=== PATIENT | female | born 1990 | race Caucasian/White ===

== ENCOUNTER → 2017-12-04 15:29 | Outpatient (CLI) | payer BC, SELFPAY ==
[2017-12-04 17:52] LABS: Chlamydia Trachomatis by PCR Negative (Negative); Neisserai gonorrhoeae by PCR Negative (Negative); Probe Check PASS; Sample Adequacy Control PASS; Specimen Processing Control PASS
== END ==
PROVIDERS: Visit Provider Obstetrics & Gynecology
DX: Z11.3 Encounter for screening for infections with a predominantly sexual mode of transmission (principal); Z32.01 Encounter for pregnancy test, result positive
CPT/HCPCS: 87491; 87591

== ENCOUNTER → 2017-12-21 15:25 | Outpatient (CLI) | payer BC, SELFPAY ==
[2017-12-21 16:50] LABS: Color, Urine Yellow (Yellow); Glucose, Dipstick 100 mg/dl (Normal); Ketone-Dipstick 5 mg/dl (Negative); Leukocyte Esterase-Dipstick 25 /ul (Negative); Nitrite-Dipstick Negative (Negative); Occult Blood-Urine Negative /ul (Negative); Protein-Dipstick 15 mg/dl (Negative); Specific Gravity, Urine 1.025 (1.002-1.030); Urine Bilirubin Dipstick Negative (Negative); Urine Urobilinogen Normal (Normal)
[2017-12-21 16:56] LABS: Urine Clarity Sl Cldy (Clear)
[2017-12-21 17:01] LABS: Absolute Lymphocyte Count 1.97 X10^3/ul (0.83-4.51); Absolute Neutrophil Count 6.6 X10^3/uL (2.0-7.7); Basophil# 0.01 X10^3/uL; Basophil% 0.1 % (0-1); Eosinophil# 0.07 X10^3/uL; Eosinophils% 0.8 % (0-5); Hematocrit 38.6 % (37-47); Hemoglobin 12.7 g/dl (12.0-15.0); Lymphocyte # 1.97 X10^3/ul (4.0); Lymphocyte % 21.6 % (19-41); Mean Corp Hgb Conc 32.9 g/gl (32-36); Mean Corpuscular Hgb 30.5 pg (27.0-32.0); Mean Corpuscular Volume 92.6 fL (81-99); Mean Platelet Vol. 10.2 fl (6.2-12.0); Monocyte# 0.43 X10^3/uL; Monocyte% 4.7 % (0-10); Neutrophil # 6.61 X10^3/uL (2.7-7.7); Neutrophil % 72.6 % (47-70); Platelet Count 220 K/mm3 (150-450); RBC Distribution Width CV 13.6 % (11.6-14.6); RBC Distribution Width SD 45.9 fl (35.1-43.9); Red Blood Count 4.17 M/mm3 (4.2-5.4); White Blood Count 9.1 K/mm3 (4.4-11.0)
[2017-12-21 17:02] LABS: POSITIVE COUNT NO; POSITIVE DIFFERENTIAL NO; POSITIVE MORPHOLOGY NO
[2017-12-21 17:31] LABS: Thyroid Stim Hormone (TSH) 0.83 uIU/mL (0.358-3.74)
[2017-12-21 17:51] LABS: Amphetamine Urine VISTA NEGATIVE (<1000 ng/mL); Barbiturate Urine VISTA NEGATIVE (< 200 ng/mL); Benzodiazepine Urine VISTA NEGATIVE (< 200 ng/mL); Cocaine Urine VISTA NEGATIVE (< 300 ng/mL); Ecstacy Urine VISTA NEGATIVE (< 500 ng/mL); Methadone Urine VISTA NEGATIVE (< 300 ng/mL); PCP Urine VISTA NEGATIVE (< 25 ng/mL); THC Urine VISTA NEGATIVE (< 50 ng/mL); Vista UDS pH Range 7
[2017-12-21 18:02] LABS: HIV - WCH Non-Reactive (Nonreactive); Rubella IgG 192.2 IU/mL
[2017-12-24 13:29] LABS: Toxoplasma Gondii IgM < 3.0 AU/mL (0.0-7.9)
[2017-12-25 09:39] LABS: HEPATITIS B SURFACE AG Negative (Negative); Hep C Antibodies <0.1 s/co ratio (0.0-0.9); Toxoplasma Gondii IgG < 3.0 IU/mL (0.0-7.1)
[2017-12-28 01:35] LABS: Prenatal RPR NONREACTIVE (NONREACTIVE)
== END ==
PROVIDERS: Visit Provider Obstetrics & Gynecology
DX: Z34.81 Encounter for supervision of other normal pregnancy, first trimester (principal)
CPT/HCPCS: 36415; 80307; 81002; 82306; 84443; 85025; 86703; 86762; 86777; 86778; 86803; 87340

== ENCOUNTER → 2018-04-12 08:35 | Outpatient (CLI) | payer OTHER, SELFPAY ==
[2018-04-12 11:20] LABS: Hematocrit 34.5 % (37-47); Hemoglobin 10.9 g/dl (12.0-15.0); Mean Corp Hgb Conc 31.6 g/gl (32-36); Mean Corpuscular Hgb 30.7 pg (27.0-32.0); Mean Corpuscular Volume 97.2 fL (81-99); Mean Platelet Vol. 10.9 fl (6.2-12.0); Platelet Count 191 K/mm3 (150-450); RBC Distribution Width CV 12.4 % (11.6-14.6); RBC Distribution Width SD 41.9 fl (35.1-43.9); Red Blood Count 3.55 M/mm3 (4.2-5.4); White Blood Count 7.1 K/mm3 (4.4-11.0)
[2018-04-12 11:21] LABS: Scan Indicated on CBC? Y/N NO
[2018-04-12 11:31] LABS: AST(SGOT) 15 U/L (15-37); Alanine Aminotransfer ALT/SGPT 15 U/L (13-56); Albumin, Serum 2.7 g/dL (3.2-5.0); Alkaline Phosphatase 67 U/L (45-117); Bilirubin, Direct 0.09 mg/dL (0.00-0.30); Globulin 3.6 g/dL (2.2-4.2); Glucose Challenge Gest 1H 50g 125 mg/dL (70-140); Protein, Total 6.3 g/dL (6.4-8.2)
== END ==
PROVIDERS: Visit Provider Obstetrics & Gynecology
DX: Z34.83 Encounter for supervision of other normal pregnancy, third trimester (principal)
CPT/HCPCS: 36415; 80076; 82950; 85027

== ENCOUNTER 2018-05-13 12:00 | Outpatient (CLI) | payer OTHER, SELFPAY ==
[2016-05-28 05:10] VITALS: BMI 29.6
[2018-05-13 13:14] VITALS: BMI 26.3
[2018-05-13] MEDS: Ondansetron 4 MG/2 ML Vial IV (13:17)
[2018-05-13] MEDS: 0.9% Normal Saline 1,000 ML 1000 ML IV (13:18)
[2018-05-13 13:24] LABS: Absolute Neutrophil Count 7.1 X10^3/uL (2.0-7.7); Basophil# 0.01 X10^3/uL; Basophil% 0.1 % (0-1); Eosinophil# 0.01 X10^3/uL; Eosinophils% 0.1 % (0-5); Hematocrit 36.5 % (37-47); Hemoglobin 11.6 g/dl (12.0-15.0); Lymphocyte % 8.1 % (19-41); Mean Corp Hgb Conc 31.8 g/gl (32-36); Mean Corpuscular Hgb 29.4 pg (27.0-32.0); Mean Corpuscular Volume 92.6 fL (81-99); Mean Platelet Vol. 10.9 fl (6.2-12.0); Monocyte# 0.78 X10^3/uL; Neutrophil # 7.07 X10^3/uL (2.7-7.7); Neutrophil % 82.1 % (47-70); Platelet Count 161 K/mm3 (150-450); RBC Distribution Width CV 13.3 % (11.6-14.6); RBC Distribution Width SD 44.8 fl (35.1-43.9); Red Blood Count 3.94 M/mm3 (4.2-5.4); White Blood Count 8.6 K/mm3 (4.4-11.0)
[2018-05-13 13:25] LABS: POSITIVE COUNT NO; POSITIVE DIFFERENTIAL NO; POSITIVE MORPHOLOGY NO
[2018-05-13 13:41] LABS: Anion Gap 15 (5-15); BUN 9 mg/dL (7-18); BUN/Creat Ratio 12.6 RATIO (10-20); Calcium,Total 8.3 mg/dL (8.5-10.1); Chloride 109 mmol/L (98-107); Creatinine, Serum 0.72 mg/dL (0.55-1.02); EST Glomerular Filtration Rate 102 mL/min (>60); Est Glom Filt Rate - Afr Amer 123 mL/min (>60); Glucose 81 mg/dL (74-106); Potassium 3.7 mmol/L (3.5-5.1); Sodium Level 140 mmol/L (136-145)
[2018-05-13] MEDS: Dextrose 5%/0.9% NaCl 1,000 ML 250 ML IV (14:28)
[2018-05-13 16:42] LABS: Mucous, Urine 0 SEEN /hpf (<or=2+); Red Blood Cells-Urine 0 SEEN /hpf (0-5); Squamous Epithelial Cells - UA 0 SEEN /hpf (5-10); White Blood Cells 0 SEEN /hpf (0-5)
[2018-05-13 16:49] LABS: Color, Urine Yellow (Yellow); Glucose, Dipstick 100 mg/dl (Normal); Leukocyte Esterase-Dipstick Negative /ul (Negative); Nitrite-Dipstick Negative (Negative); Occult Blood-Urine Negative /ul (Negative); Protein-Dipstick 30 mg/dl (Negative); Specific Gravity, Urine 1.025 (1.002-1.030); Urine Bilirubin Dipstick Negative (Negative); Urine Clarity Clear (Clear); Urine Urobilinogen Normal (Normal)
[2018-05-13 17:00] LABS: Ketone-Dipstick 150 mg/dl (Negative)
[2018-05-13 17:10] LABS: Bacteria RARE /hpf (None Seen)
--- NOTE | 2018-05-13 17:47 | PCM.PN.BLA ---
Progress Note 32 wk EGA with prior 40 wk delivery. Here for IV fluids d/t N/V starting Sunday05/11/18. IV fluids given. Tolerating ice chips now and jello. States has been doing fine at home x two weeks on Zantac bid. Also had been using Zofran. Wants to try another jello prior to going home. Feeling better though. Asking if she needs cervix check AVSS EFM category I tracing with very rare UC noted Cx: deferred A/P: 32 wk N/V. Improved after IV fluids, antiemetics. Tolerating PO jello, ice chips. Will dischg home today .
--- NOTE | 2018-05-14 17:38 | OB.TRI.NOTE ---
History of Present Illness Date of Service: 05/13/18 Was patient seen by the physician?: Yes Reason For Visit: NAUSEA & VOMITING Date of Service: 05/13/18 Final JESUS: 07/08/18 Final JESUS Source: US <20 weeks Gestational age: 32 Weeks and 0 Days History of Present Illness: 32 wk EGA with prior 40 wk delivery. Here for IV fluids d/t N/V starting Sunday05/11/18. States has been doing fine at home x two weeks on Zantac bid. Also had been using Zofran. but stopped that. Still has RX (Dr Janet Arciniega sent more in per pt) Allergies No Known Allergies Allergy (Verified 11/10/15 17:52) Laboratory Studies: Laboratory Tests 05/13/18 05/13/18 05/13/18 Range/Units 16:30 12:55 12:55 WBC 8.6 (4.4-11.0) K/mm3 RBC 3.94 L (4.2-5.4) M/mm3 Hgb 11.6 L (12.0-15.0) g/dl Hct 36.5 L (37-47) % MCV 92.6 (81-99) fL MCH 29.4 (27.0-32.0) pg MCHC 31.8 L (32-36) g/gl RDW 13.3 (11.6-14.6) % RDW Differential 44.8 H (35.1-43.9) fl Plt Count 161 (150-450) K/mm3 MPV 10.9 (6.2-12.0) fl Immature Gran % (Auto) 0.600 (0.0-0.9) % Neut % (Auto) 82.1 H (47-70) % Lymph % (Auto) 8.1 L (19-41) % [place] % (Auto) 9.0 (0-10) % Eos % (Auto) 0.1 (0-5) % Baso % (Auto) 0.1 (0-1) % Absolute Neuts (auto) 7.1 (2.0-7.7) X10^3/uL Absolute Lymphs (auto) 0.70 L (0.83-4.51) X10^3/ul Total Counted Not Reportable Sodium 140 (136-145) mmol/L Potassium 3.7 (3.5-5.1) mmol/L Chloride 109 H (98-107) mmol/L Carbon Dioxide 16.0 L (21.0-32.0) mmol/L Anion Gap 15 (5-15) BUN 9 (7-18) mg/dL Creatinine 0.72 (0.55-1.02) mg/dL Est GFR (MDRD) Af Amer 123 (>60) mL/min Est GFR (MDRD) Non-Af 102 (>60) mL/min BUN/Creatinine Ratio 12.6 (10-20) RATIO Glucose 81 (74-106) mg/dL Calcium 8.3 L (8.5-10.1) mg/dL Urine Color Yellow (Yellow) Urine Clarity Clear (Clear) Urine pH 5.0 (5.0 - 8.0) Ur Specific [place] 1.025 (1.002-1.030) Urine Protein 30 H (Negative) mg/dl Urine Glucose (UA) 100 H (Normal) mg/dl Urine Ketones 150 H (Negative) mg/dl Urine Occult Blood Negative (Negative) /ul Urine Nitrite Negative (Negative) Urine Bilirubin Negative (Negative) mg/dL Urine Urobilinogen Normal (Normal) mg/dl Ur Leukocyte Esterase Negative (Negative) /ul Urine RBC 0 SEEN (0-5) /hpf Urine WBC 0 SEEN (0-5) /hpf Ur Squamous Epith Cells 0 SEEN (5-10) /hpf Urine Bacteria RARE (None Seen) /hpf Urine Mucus 0 SEEN (<or=2+) /hpf Review of Systems Constitutional: Reports: Malaise. Denies: Chills, Fever Genitourinary: Denies: Dysuria Physical Exam General: Alert, Oriented x3, Cooperative, No apparent distress HEENT: Atraumatic Abdomen: Soft, Gravid Neurological: Cranial nerves II-XII grossly intact NST - FHR Rate Baby A Variability:: Moderate Accelerations:: 15 x 15 Decelerations:: None NST Reactive:: Yes, Appropriate for gestational age FHR Category:: Category I Uterine Activity:: no UCs noted. Impression/Plan 32 wk EGA N/V dehydration. -- IV fluids given. -- Tolerating ice chips now and jello. -- Feeling better -- dischg home. Keep next PNV in ofc. Return if inc symptoms, not able to tolerate po. Recommend resume both Zofrand and Zantac.
== END 2018-05-13 18:50 | disposition home or self-care (01) ==
LOC: WPOUT 12:02 → WP 12:02
PROVIDERS: Referring Provider Obstetrics & Gynecology; Visit Provider Obstetrics & Gynecology
DX: O26.893 Other specified pregnancy related conditions, third trimester (principal); R11.2 Nausea with vomiting, unspecified; E86.0 Dehydration; Z3A.32 32 weeks gestation of pregnancy
CPT/HCPCS: 96361; 96374; 59050; 80048; 81001; 85025; 99218; J7030; G0378; J2405; J3490

== ENCOUNTER → 2018-06-07 15:53 | Outpatient (CLI) | payer OTHER, SELFPAY ==
[2018-05-13 13:14] VITALS: BMI 26.3
== END ==
PROVIDERS: Visit Provider Obstetrics & Gynecology
DX: Z36.85 Encounter for antenatal screening for Streptococcus B (principal)
CPT/HCPCS: 87081

== ENCOUNTER 2018-07-09 04:20 | Inpatient (IN) | payer OTHER, SELFPAY ==
[2018-07-09] MEDS: Lactated Ringers 1,000 ML 50 ML IV ×4 (05:14→14:46)
[2018-07-09 05:20] VITALS: BMI 29.5
--- NOTE | 2018-07-09 05:38 | PCM.HPOB.BLA ---
History and Physical Date of Admission: 07/09/18 OB HISTORY AND PHYSICAL EXAMINATION History of this : 28 yo female Ab0 with EDC 07/08/2018 by 9 weeks 1 day Ultrasound, presents to Labor and Delivery at 40 1/7 wk EGA with CC of painful UCs. care remarkable for: 1.) Low Vit D, 2.) Wants MSAFP, declines CF testing, 3.) [place] Ancestry, not tested for B-thalassemia 4.) Prior C/S planning . calculator estimates 61% success 5.) Vet, works with small animals. Toxoplasmosis IgG, IgM NEGATIVE Pertinent Past Medical History: Primary C/S CPD, persistent OP. 8# 9 oz male. 05/28/16 (EB) 62.1% estimated success Allergies: No Known Drug Allergies Medications: During - Zofran 4 mg tablet; Zantac 150 mg tablet; ; 28 mg-800 mcg tablet; Vitamin D3 4,000 unit capsule Review of Systems: Painful UCs. No ROM PHYSICAL EXAMINATION General Appearence: 28 yo female A and O. Uncomfortable with UCs. Vital Signs: AF, VSS Heart: RRR without rubs or gallops Lungs: CTA x 2 Breasts: deferred Abdomen: gravid Cervix: 4/85/-1 at 0445 Presentation: cephalic Fetus: AGA Movement: present Heart: EFM 130-140s avg variability, accels. Occasional early. Category I tracing. UCs s 2 - 3 1/2 mins Impression /Plan: Intrauterine .40 1/7 wk prior C/S for . Prior C/S for CPD, persistent OP. 8# 9 oz male. 62.1% estimated success. Admit. Monitor progress, descent, tolerance of labor. See Progress Notes for Changes: Physician's Signature: Date:
[2018-07-09 05:42] LABS: Absolute Lymphocyte Count 1.39 X10^3/ul (0.83-4.51); Absolute Neutrophil Count 7.3 X10^3/uL (2.0-7.7); Basophil# 0.01 X10^3/uL; Basophil% 0.1 % (0-1); Eosinophil# 0.03 X10^3/uL; Eosinophils% 0.3 % (0-5); Hemoglobin 10.1 g/dl (12.0-15.0); Lymphocyte # 1.39 X10^3/ul (4.0); Lymphocyte % 15.1 % (19-41); Mean Corp Hgb Conc 31.6 g/gl (32-36); Mean Corpuscular Volume 85.6 fL (81-99); Mean Platelet Vol. 12.3 fl (6.2-12.0); Monocyte# 0.46 X10^3/uL; Neutrophil # 7.26 X10^3/uL (2.7-7.7); Neutrophil % 79.2 % (47-70); Platelet Count 189 K/mm3 (150-450); RBC Distribution Width CV 14.9 % (11.6-14.6); RBC Distribution Width SD 44.5 fl (35.1-43.9); Red Blood Count 3.74 M/mm3 (4.2-5.4); White Blood Count 9.2 K/mm3 (4.4-11.0)
[2018-07-09 06:25] LABS: POSITIVE COUNT NO; POSITIVE DIFFERENTIAL NO; POSITIVE MORPHOLOGY NO
[2018-07-09] MEDS: fentaNYL-bupivacaine (epidural) 100 ML BAG EPIDURAL ×3 (07:11→18:07)
[2018-07-09] MEDS: Mag Hydrox/Al Hydrox/Simeth 30 ML UDC PO (07:38)
--- NOTE | 2018-07-09 12:16 | PCM.PN.BLA ---
Progress Note LABOR PROGRESS NOTE 40 1/7 wk EGA labor. SROM approx 10:30 am. light mec Comfortable with epidural Asking about meconium stained fluid AVSS no Pitocin at this time CX: 8/anterior lip 50% and at sides 80%/-2 Rectum full of stool. EFM; 120-130s avg variability. Accels UCs q 2-4 mins slightly irregular A/P: 40 1/7 wk labor Cervix check same as RN last check SROM. Thick anterior lip. Recommend position changes to facilitate rotation, descent. meconium stained fluid but EFM reassuring. Explained personnel to be present at delivery, with skin to skin planned if baby vigorous at .
[2018-07-09] MEDS: Oxytocin 30 units/NS 500 ml 30 UNITS/500 ML IV.SOLN IV (16:04)
[2018-07-09] MEDS: Ondansetron 4 MG/2 ML Vial IV (16:11)
[2018-07-09] MEDS: Acetaminophen 325 MG Tablet PO (17:22)
[2018-07-09] MEDS: CHLORHEXIDINE GLUC 2% CLOTH 1 EACH TOWELETTE TOPICAL (20:15)
[2018-07-09] MEDS: Sodium Citrate/Citric Acid 30 ML UDC PO (20:20)
[2018-07-09] MEDS: Oxytocin 30 units/NS 500 ml 30 UNITS/500 ML IV.SOLN 334 UNITS IV (21:08)
[2018-07-09] MEDS: Methylergonovine 0.2 MG/ML Ampul IM (21:10)
[2018-07-09] MEDS: miSOPROStol 200 MCG Tablet 600 MCG RECTAL (21:18)
--- NOTE | 2018-07-09 21:25 | PCM.OPRPT ---
Vaginal Delivery Maternal Presentation: Active Labor Amniotic Fluid Description: Lightly stained meconium Final JESUS: 07/08/18 Final JESUS Source: US <20 weeks Gestational age: 40 Weeks and 1 Days doctor who attended delivery (if requested by OB): Feli Eric Date of Procedure: 07/09/18 Pre-Operative Diagnosis: Prior Section, Heart Rate Decelerations, IUP Post-Operative Diagnosis: Prior Section, Heart Rate Decelerations, IUP Surgery/ Procedure Performed: Vacuum Assisted Vaginal Delivery - Double Set up in Room; Vaginal after Anesthesiologist: Danyel Greene Type of Anesthesia: Epidural Description of Procedure: Spontaneous vaginal delivery after of a viable male infant with Apgars of 8/10 from an occiput anterior presentation with lightly stained meconium fluid and normal three-vessel placenta. No episiotomy. Second-degree midline laceration repaired in layers with 3-0 Rapide suture under epidural. Under double set up for a , Kiwi vacuum was used from low outlet to expedite delivery of the head due to deep decelerations with pushing and each contraction with an occasional late deceleration. No pop offs and two pulls. Sponges okay. Delivery physician: Tarik Lord MD. Presentation: Vertex Placental Delivery Description: Spontaneous Placenta Disposition: [facility] Cord Vessel Description: 3 Vessels Cord Gases drawn per routine: VBG Cord Entanglement: None Drain: [place] to straight drain Estimated Blood Loss: 450 cc A gender: Male (1 minute): 8 (5 minute): 10 Episiotomy Description: None Laceration: Midline, 2nd degree Medications given after delivery: IV Pitocin, IM Methergin, - - Rectal Cytotec 600 mg
[2018-07-09] MEDS: Oxytocin 30 units/NS 500 ml 30 UNITS/500 ML IV.SOLN 167 UNITS IV (21:30)
--- NOTE | 2018-07-09 21:36 | DCINST_ITS ---
May resume sexual activity in: 4-6 weeks Additional Activity Instructions:: Nothing in the vagina for 4-6 weeks. You may return to work/school in 6 weeks. Call your doctor if you observe: Fever of 101 or Higher, Inability to urinate, Inability to have a bowel movement, Using more than one pad per hour Additional Instructions: If you experience any of the following, contact your healthcare provider. * Bleeding that soaks a pad every hour for 2 hours * Unrelieved incision or abdominal pain * Swelling, redness, discharge or bleeding from your incision or episiotomy site * Your incision begins to separate * Problems urinating (including inability to urinate or burning while urinating). * Visual changes * Severe headache * Flu-like symptoms * Pain or redness in one of both of your breasts * Pain, warmth, tenderness or swelling in your legs, especially the calf area * Frequent nausea and vomiting * Symptoms of depression or anxiety If you experience any of the following, call 911 or go to the nearest Emergency Room. * Chest pain * Problems breathing * Seizure activity * Partial or complete paralysis of a body part, slurred speech, weakness or drooping of the face, or a sudden inability to walk or hold your balance Allergies/Adverse Reactions: Allergies No Known Allergies Allergy (Verified 07/09/18 05:21) Medications to take at Discharge Docusate Sodium [Colace] 100 mg PO BID PRN #30 capsule 05/28/16 Vit No.130/Iron/Folic [ Tablet] 1 each PO DAILY 05/28/16 Ranitidine [Zantac] 150 mg PO DAILY 05/28/16 Ondansetron HCl [Zofran] 4 mg PO BID 07/09/18 Please Follow Up With: Mine Granado MD When: Call to make an appointment with your doctor in 6 weeks. Primary Care Physician: Care Physician,No Primary [Primary Care Provider] - Test Results: Test results from this visit will be discussed in further detail at your follow- up appointment, if applicable.
--- NOTE | 2018-07-09 21:38 | PLAC_PTH ---
PATIENT: LOLA HEATON LOC: [facility] U#:[id number] AGE/SX: 28/F ROOM: WP014 RE07/09/[address]: Dr. Clare Sandhu MD : 1990 BED: 1 DIS: 07/11/2018 SPEC #: [id number] RECD: 07/10/18 13:31 STATUS: LUIS ALBERTO MARY #: [id number] EM: 07/09/18 21:[address]: Tarik Lord DEPT: SURGICAL PATHOLOGY RECD BY: Jeramy Garcia ENTERED: 07/10/18 09:02 SP TYPE: PLACENTA OTHR DR: Dr. Clare Sandhu MD No Primary Care Phys Tissues: Placenta, NOS Procedures: Surgery Specimen Level V HEADER OPERATION: Vaginal delivery PRE-OP DIAGNOSIS: Meconium fluid and staining TISSUE SUBMITTED: Placenta MICROSCOPIC DIAGNOSIS [place] placenta (658 gm): Umbilical cord - trivascular with no inflammation. Placental membranes - pigmented macrophages consistent with meconium staining. Placental disc - Sunil-Lalo change and mild intravillous congestion. AM:doreen 07/12/18 MICROSCOPIC DESCRIPTION Slides are reviewed. GROSS DESCRIPTION SPECIMEN: PLACENTA / CLINICAL INFORMATION: A. Weight: 4.269 kg B. Gestational Age: 40 weeks C. Sex: Male PLACENTAL WEIGHT (POST FIXATION): 658 gm PLACENTAL DIMENSIONS: 20 x 19.6 x 2.3 cm PLACENTAL SHAPE: Usual ovoid PLACENTAL WEIGHT FOR GESTATIONAL AGE: Over 99th percentile MEMBRANES - Present A. Insertion: Marginal B. Site of rupture from edge: Edge of placental disc C. Color of membrane: Fish-carbajal D. Abnormalities: None UMBILICAL CORD - Present A. Color: Fish-carbajal B. Insertion: Central C. Length: 36.5 cm D. Diameter: 1.5 cm E. Number of vessels: Three F. Abnormalities: None PLACENTAL DISC - Present A. Color of surface: Fish-carbajal B. surface abnormalities: None C. Maternal cotyledons: Intact with minimal tears D. Attached retro placental clot: No clot E. Cut surface: Dark red and spongy F. Lesions: None G. Separate clot: Absent SECTIONS SUBMITTED: 1 - Umbilical cord, end and membranes 2 - Umbilical cord, maternal end and membranes 3 - Central placenta, surface 4 - Peripheral placenta 5 - Central placenta, maternal surface CE:doreen 07/11/18 TC:5 CPT: 14765
--- NOTE | 2018-07-09 23:00 | NURSING ---
Taking over pt care at this time.
[2018-07-10 01:38] LABS: Pathology Specimen OB SEE PATHOLOGY REPORT
[2018-07-10 04:40] VITALS: BP 98/54; PULSE 82; RESP 18; TEMP 36.5; O2SAT 97
[2018-07-10] MEDS: Ibuprofen 600 MG Tablet PO ×3 (05:23→23:52)
[2018-07-10 05:40] LABS: Hemoglobin 8.6 g/dl (12.0-15.0); Mean Corp Hgb Conc 33.1 g/gl (32-36); Mean Corpuscular Hgb 28.1 pg (27.0-32.0); Mean Platelet Vol. 11.5 fl (6.2-12.0); Platelet Count 147 K/mm3 (150-450); RBC Distribution Width CV 15.2 % (11.6-14.6); RBC Distribution Width SD 47.5 fl (35.1-43.9); Red Blood Count 3.06 M/mm3 (4.2-5.4)
[2018-07-10 05:57] LABS: Scan Indicated on CBC? Y/N NO
[2018-07-10 07:45] VITALS: BP 101/55; PULSE 75; RESP 15; TEMP 36.5
--- NOTE | 2018-07-10 07:59 | PCM.PN.OB ---
Subjective: PPD#1 Vacuum assisted vaginal delivery LGA Doing well. Some burning/ stinging with urination. Breast feeding well. - Physical Exam General: Alert, Oriented x3, Cooperative, No apparent distress HEENT: Atraumatic Neck: Supple Neurological: Cranial nerves II-XII grossly intact Psych/Mental Status: Normal Affect Vital Signs Temp Pulse Resp BP Pulse Ox 97.7 F L 82 18 98/54 L 97 07/10/18 04:40 07/10/18 04:40 07/10/18 04:40 07/10/18 04:40 07/10/18 04:40 Oxygen Delivery Method Room Air Weight: 73.119 kg Body Mass Index (BMI) 29.5 Intake and Output for Last 24 Hours 07/08/18 07/09/18 07/10/18 23:59 23:59 23:59 Intake Total 4861 / 4861 Output Total 550 / 550 300 / 300 Balance 4311 / 4311 -300 / -300 Laboratory Tests Past 24 Hrs 07/10/18 05:30 WBC 16.0 H RBC 3.06 L Hgb 8.6 L Hct 26.0 L MCV 85.0 MCH 28.1 MCHC 33.1 RDW 15.2 H RDW Differential 47.5 H Plt Count 147 L MPV 11.5 Medical Necessity - Tobacco Use Smoking Status: Never smoker Assessment/Plan PPD#1 40 1/7 wk labor. Vacuum assisted vaginal delivery Stable pp. Routine pp care. Dermoplast ordered for prn use to perineum.
[2018-07-10 13:00] VITALS: BP 110/60; PULSE 78; RESP 14; TEMP 36.4
[2018-07-10 16:46] VITALS: BP 118/51; PULSE 108; RESP 16; TEMP 37.2
[2018-07-10] MEDS: Senna/Docusate Sodium 1 Tablet PO (19:59)
[2018-07-10] MEDS: Acetaminophen 500 MG Tablet 1000 MG PO (19:59)
[2018-07-10 20:01] VITALS: BP 98/53; PULSE 85; RESP 18; TEMP 36.9
[2018-07-11 03:19] VITALS: BP 106/56; PULSE 71; RESP 16; TEMP 36.6
[2018-07-11] MEDS: Acetaminophen 500 MG Tablet 1000 MG PO (04:44)
--- NOTE | 2018-07-11 07:45 | PCM.PN.OB ---
Subjective: PPD#2 Doing well. Nursing. Perineum still sore and didn't realize she had to request pain meds. Sore yest pm and then improved p pain meds given. Asking about care of perineum. Objective: Sitting up in bed nursing baby - Physical Exam General: Alert, Oriented x3, Cooperative, No apparent distress HEENT: Atraumatic Neck: Supple Psych/Mental Status: Normal Affect Vital Signs Temp Pulse Resp BP Pulse Ox 98 F 71 16 106/56 L 97 07/11/18 03:07/11/18 03:07/11/18 03:07/11/18 03:07/10/18 04:40 Oxygen Delivery Method Room Air Weight: 73.119 kg Body Mass Index (BMI) 29.5 Intake and Output for Last 24 Hours 07/09/18 07/10/18 07/11/18 23:59 23:59 23:59 Intake Total 4861 / 4861 Output Total 550 / 550 700 / 700 Balance 4311 / 4311 -700 / -700 Medical Necessity - Tobacco Use Smoking Status: Never smoker Assessment/Plan PPD#2 40 1/7 wk labor. Vacuum assisted vaginal delivery Stable pp. Dischg home today. Will continue pericare at home until more comfortable, then routine washing. Reviewed sitz bath, continued rachel bottle, pat dry. Dermoplast prn. RTO in 6 wk for pp check, prn sooner.
[2018-07-11] MEDS: Senna/Docusate Sodium 1 Tablet PO (08:06)
[2018-07-11] MEDS: Ibuprofen 600 MG Tablet PO (08:07)
[2018-07-11 08:10] VITALS: BP 97/53; PULSE 84; RESP 20; TEMP 36.6; O2SAT 98
[2018-07-11 14:25] VITALS: BP 112/55; PULSE 98; TEMP 36.5; O2SAT 99
== END 2018-07-11 14:25 | disposition home or self-care (01) | DRG 807 ==
PROVIDERS: Obstetrics & Gynecology; Admitting Provider Obstetrics & Gynecology; Referring Provider Obstetrics & Gynecology; Visit Provider Obstetrics & Gynecology
DX: O76 Abnormality in fetal heart rate and rhythm complicating labor and delivery (principal); Z37.0 Single live birth; O34.211 Maternal care for low transverse scar from previous cesarean delivery; O36.63X0 Maternal care for excessive fetal growth, third trimester, not applicable or unspecified; O70.1 Second degree perineal laceration during delivery; O77.0 Labor and delivery complicated by meconium in amniotic fluid; Z3A.40 40 weeks gestation of pregnancy
CPT/HCPCS: 59025; 59050; 76815; 85025; 85027; 86850; 86900; 88307; 99218; J7120; G0378; J2405

== ENCOUNTER → 2018-08-22 15:09 | Outpatient (CLI) | payer OTHER, SELFPAY ==
[2018-08-22 15:51] LABS: Hematocrit 35.4 % (37-47); Hemoglobin 10.9 g/dl (12.0-15.0); Mean Corp Hgb Conc 30.8 g/gl (32-36); Mean Corpuscular Hgb 26.1 pg (27.0-32.0); Mean Corpuscular Volume 84.7 fL (81-99); Mean Platelet Vol. 9.9 fl (6.2-12.0); Platelet Count 303 K/mm3 (150-450); RBC Distribution Width CV 16.9 % (11.6-14.6); RBC Distribution Width SD 52.7 fl (35.1-43.9); Red Blood Count 4.18 M/mm3 (4.2-5.4); White Blood Count 5.2 K/mm3 (4.4-11.0)
[2018-08-22 16:10] LABS: Scan Indicated on CBC? Y/N NO
[2018-08-27 12:31] LABS: HPV Reflexed? NOT INDICATED
== END ==
PROVIDERS: Visit Provider Obstetrics & Gynecology
DX: Z12.4 Encounter for screening for malignant neoplasm of cervix (principal); Z86.2 Personal history of diseases of the blood and blood-forming organs and certain disorders involving the immune mechanism
CPT/HCPCS: 36415; 85027; 88175; G0145